=== PATIENT | female | born 1955 | race Caucasian/White ===

== ENCOUNTER → 2021-01-28 | Day surgery (SDC) | payer OTHER ==
[~2021-01-28] MED LIST: BREZTRI AEROS10.7 GM INH; BUSPIRONE HCL15 MG PO; DALIRESP250 MCG PO; GLUCOPHAGE 500500 MG PO; GLUCOTROL XL2.5 MG PO; HYDROXYZINE HCL10 MG PO; IPRAT-ALBUT 0.5-3 ML INH; LOSARTAN POTAS100 MG PO; MIRAPEX0.25 MG PO; OMEPRAZOLE40 MG PO; PROVENTIL HFA6.7 GM INH; SINGULAIR10 MG PO; TOPROL XL25 MG PO; VITAMIN D21250 MCG PO; ZOCOR20 MG PO; ZOLOFT100 MG PO
[2021-01-28 12:04] LABS: HEMOGLOBIN 11.6 gm/dl (12.3-15.3); RED BLOOD COUNT 4.36 M/UL (4.00-5.10); WHITE BLOOD COUNT 5.9 K/UL (4.5-11.0)
[2021-01-28 12:16] LABS: BUN/CREATININE RATIO 13 (0-10)
== END | disposition home or self-care (01) ==
LOC: OPSV2 10:30
PROVIDERS: Orthopaedic Surgery
DX: Z01.818 Encounter for other preprocedural examination (principal); M19.011 Primary osteoarthritis, right shoulder
CPT/HCPCS: 71046; 80048; 83036; 85025; 93005

== ENCOUNTER 2021-02-12 05:24 | Observation (INO) | payer MEDICARE ==
[~2021-02-12] VITALS: Ht 162.6 cm; Wt 77.1 kg
[2021-02-12 07:11] LABS: BUN/CREATININE RATIO 15 (0-10)
[2021-02-12] MEDS ORDERED: ASPIRIN EC81 MG PO (08:39)
[2021-02-12] MEDS ORDERED: HYDROCODON-ACE1 EAC6 PO (08:39)
[2021-02-12] MEDS ORDERED: ZOFRAN 4 MG TAB4 MG PO (08:39)
[2021-02-12] MEDS ORDERED: CYCLOBENZAPRINE10 MG PO (08:39)
[2021-02-12] MEDS ORDERED: VITAMIN B-121000 MCG PO (13:49)
[2021-02-13 06:41] LABS: RED BLOOD COUNT 3.46 M/UL (4.00-5.10); WHITE BLOOD COUNT 5.9 K/UL (4.5-11.0)
[2021-02-13 06:54] LABS: BUN/CREATININE RATIO 22 (0-10)
[2021-02-14 06:44] LABS: HEMOGLOBIN 9.6 gm/dl (12.3-15.3); RED BLOOD COUNT 3.68 M/UL (4.00-5.10); WHITE BLOOD COUNT 6.1 K/UL (4.5-11.0)
[2021-02-14 07:11] LABS: BUN/CREATININE RATIO 20 (0-10)
[2021-02-15 06:22] LABS: HEMOGLOBIN 9.5 gm/dl (12.3-15.3); RED BLOOD COUNT 3.71 M/UL (4.00-5.10); WHITE BLOOD COUNT 5.8 K/UL (4.5-11.0)
[2021-02-15 06:59] LABS: BUN/CREATININE RATIO 22 (0-10)
== END 2021-02-16 12:11 | disposition home or self-care (01) ==
LOC: OR 05:24 → M/S 11:56 → OR 02-14 10:51 → M/S 02-16 12:11
PROVIDERS: ADMIT Orthopaedic Surgery
DX: M19.011 Primary osteoarthritis, right shoulder (principal); M75.111 Incomplete rotator cuff tear or rupture of right shoulder, not specified as traumatic; G89.18 Other acute postprocedural pain; J44.9 Chronic obstructive pulmonary disease, unspecified; I10 Essential (primary) hypertension; E11.9 Type 2 diabetes mellitus without complications; K21.9 Gastro-esophageal reflux disease without esophagitis; E78.5 Hyperlipidemia, unspecified; F41.9 Anxiety disorder, unspecified; F32.A Depression, unspecified; Z87.891 Personal history of nicotine dependence; Z88.5 Allergy status to narcotic agent; Z79.84 Long term (current) use of oral hypoglycemic drugs; Z79.899 Other long term (current) drug therapy; Z20.822 Contact with and (suspected) exposure to COVID-19
CPT/HCPCS: 36415; 71045; 73020; 80048; 82962; 85027; 94640; 94760; 97116; 97116-GP-CQ; 97162; 97166; 97530; 97530-GP-CQ; 97535; G0378; J0592; J0690; J1100; J1200; J1885; J2250; J2405; J2704; J2710; J2795; J3010; J3370; J3475; J7030; J7120